=== PATIENT | male | born 2000 | race African-American/Black ===

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

== ENCOUNTER 2022-08-14 00:52 | Emergency (ER) | payer OTHER, SELFPAY ==
[2022-08-14 01:01] VITALS: BP 131/64; PULSE 100; RESP 16; TEMP 38; O2SAT 98; BMI 21.8
--- NOTE | 2022-08-14 01:11 | ED.GENADULT ---
HPI - General Adult General Chief complaint: Fever Stated complaint: fever Time Seen by Provider: 08/14/22 01:05 Source: patient Mode of arrival: Ambulatory History of Present Illness HPI narrative: Patient is an otherwise healthy 22-year-old male who is here for evaluation of several days of flu-like illness to include nausea without vomiting, no rashes, body aches, sore throat, sinus congestion and fevers. Patient states that it does hurt to swallow but he is able to tolerate his secretions. No change in bowel habits. No recent travel. No recent antibiotics. Has not taken any antipyretics for his fever. Related Data Allergies Allergy/AdvReac Type Severity Reaction Status Date / Time No Known Drug Allergies Allergy Verified 03/03/19 03:42 Review of Systems Constitutional Constitutional: Reports system reviewed and no additional complaints, except as documented ENT Ears, Nose, Mouth, and Throat: Reports system reviewed and no additional complaints, except as documented Respiratory Respiratory: Reports system reviewed and no additional complaints, except as documented Gastrointestinal Gastrointestinal: Reports system reviewed and no additional complaints, except as documented Integumentary/Breasts Skin/Breast: Reports system reviewed and no additional complaints, except as documented Neurologic Neurologic: Reports system reviewed and no additional complaints, except as documented Hematologic/Lymphatic On Anticoagulants: No Patient History Medical History Healthy adult Social History Smoking Status: Never smoker Smoking Status: Never smoker Substance Use Type: does not use Exam Initial Vital Signs Initial Vital Signs: Vital Signs Temperature 100.4 F H 08/14/22 01:01 Pulse Rate 100 H 08/14/22 01:01 Respiratory Rate 16 08/14/22 01:01 Blood Pressure 131/64 08/14/22 01:01 Pulse Oximetry 98 08/14/22 01:01 Oxygen Delivery Method Room Air 08/14/22 01:01 HENOH Head: normal to inspection and normocephalic Ears: TM abnormal bulging bilaterally, wth effusion serous bilaterally and with fluid behind the TM bilaterally; not erythematous Mouth: oral mucosae normal, tongue normal and moist mucous membranes Neck Lymphatic: lymphadenopathy Resp Effort & Inspection: normal respiratory effort Auscultation: clear to auscultation bilaterally Cardio Rate: regular rate Skin General: no rashes or lesions noted Neuro General: patient alert, patient awake and moves all extremities Course Orders Ordered: ED Orders 08/14/22 01:20 Covid-19 + FLU A/B + RSV - PCR Stat Vital Signs Vital signs: Vital Signs - 8 hr 08/14/22 01:01 Temperature 100.4 F H Pulse Rate 100 H Respiratory Rate 16 Blood Pressure 131/64 Pulse Oximetry 98 Oxygen Delivery Method Room Air Medical Decision Making Lab Data Labs: Lab Results 08/14/22 Range/Units 01:20 SARS-CoV-2 (PCR) Negative (Negative) Influenza A (RT-PCR) Flu a negative (NEGATIVE) Influenza B (RT-PCR) Flu b negative (NEGATIVE) RSV (PCR) Negative (Negative) MDM Narrative Medical decision making narrative: Patient is well-appearing. Lungs are clear without respiratory distress. Does have lymphadenopathy but also has bulging bilateral tympanic membranes without any erythema. His COVID and flu were negative but I do suspect that this is a viral upper respiratory illness. No indication for antibiotics. No indication for radiologic studies. My the patient follow-up with [place]. He was given return precautions. He expressed understanding and agreement. Discharge Plan Departure Patient Disposition: Home Clinical Impression: Fever Instructions: DI for Fever (Symptom) -- Adult Activity Restrictions/Additional Instructions: Recommend that you continue to take Tylenol/ibuprofen for any fevers. Contact your medical department for follow-up. Return to the emergency department for new symptoms. Stand Alone Forms: Patient Portal/API, Work Release Note
[2022-08-14 02:00] LABS: Influenza A - CEPHEID Flu A NEGATIVE (NEGATIVE); Influenza B - CEPHEID Flu B NEGATIVE (NEGATIVE); Respiratory Syncytial Virus Negative (Negative)
[2022-08-14 02:03] LABS: COVID-19 CEPHEID 4-PLEX PCR Negative (Negative)
== END 2022-08-14 02:14 | disposition home or self-care (01) ==
PROVIDERS: Emergency Provider Emergency Medicine
DX: R50.9 Fever, unspecified (principal); Z20.822 Contact with and (suspected) exposure to COVID-19
CPT/HCPCS: 0241U; 99281; 99282

== ENCOUNTER → 2024-02-19 11:43 | Outpatient (CLI) | payer OTHER, SELFPAY ==
--- NOTE | 2024-02-19 11:46 | DI.RAD.S_ITS ---
PROCEDURE: XR HAND RT MIN 3V INDICATIONS: Right-hand pain TECHNIQUE: 3 views of the hand(s) acquired. COMPARISON: [facility], CR, XR HAND RT MIN 3V, 03/03/2019, 3:42. FINDINGS: Bones: Radiolucency involving 5th metacarpal base is seen concerning for a nondisplaced fracture in this area suggest clinical correlation. No other fracture or dislocation. Carpal bones are normally aligned. No suspicious bony lesions. Soft tissues: No suspicious soft tissue calcifications. IMPRESSION: Finding is concerning for subtle nondisplaced fracture involving 5th metacarpal base suggest clinical correlation. Dictated by: Musa Colón M.D. on 02/19/2024 at 17:49 Approved by: Musa Colón M.D. on 02/19/2024 at 17:50
== END ==
PROVIDERS: Referring Provider Nurse Practitioner Family; Visit Provider Nurse Practitioner Family
DX: S66.911A Strain of unspecified muscle, fascia and tendon at wrist and hand level, right hand, initial encounter (principal); X58.XXXA Exposure to other specified factors, initial encounter
CPT/HCPCS: 73130

== ENCOUNTER 2024-10-26 21:01 | Emergency (ER) | payer BC, SELFPAY ==
[2024-10-26 21:44] VITALS: BP 122/77; PULSE 78; RESP 14; TEMP 37.2; O2SAT 98; BMI 21.2
== END 2024-10-26 23:15 | disposition left against medical advice (07) ==
PROVIDERS: Emergency Provider Emergency Medicine
DX: Z53.21 Procedure and treatment not carried out due to patient leaving prior to being seen by health care provider (principal)
CPT/HCPCS: 99281